=== PATIENT | male | born 1960 | race Caucasian/White ===

== ENCOUNTER 2020-04-28 21:06 | Observation (INO) | payer OTHER ==
--- OUTSIDE RECORDS SUMMARY | 2020-04-28 21:08 | XMS REPORT | Continuity of Care Document ---
:1960 Author Organization [facility] t Address [address] [place] [address] Care Team Providers Name Role Phone Salena Lester Attending Clinician Karan ANGULO, Gretel Amaya Attending Clinician Problems This patient has no known problems. Allergies, Adverse Reactions, Alerts This patient has no known allergies or adverse reactions. Medications This patient has no known medications. Procedures This patient has no known procedures. Encounters Start End Encounter Admission Attending Care Care Encounter Source Date/Time Date/Time Type Type Clinicians Facility Department ID 2020-04-28 2020-04-28 Emergency [place] [facility] [id number] 20:21:00 20:53:00 Salena Sellers [id number] [place] [id number] [place] [id number] 2020-04-24 2020-04-24 Telephone DONNIE Russo [id number] 00:00:00 00:00:00 [facility] [id number] [facility] [id number] 2020-04-12 2020-04-12 Telephone DONNIE Russo [id number] 00:00:00 00:00:00 [facility]al [facility] [id number] [facility] [id number] 2020-04-11 2020-04-11 Office DONNIE Russo [id number] 07:57:35 09:04:50 Visit [facility] [id number] [facility] [id number] Results This patient has no known results.
--- OUTSIDE RECORDS SUMMARY | 2020-04-28 21:09 | XMS REPORT | Summary of Care ---
:1960 Author Organization [facility] Address [address] [place] [id number] Care Team Providers Name Role Phone Gretel Russo MD Primary Care Provider Reason for Visit Reason Comments Constipation Abdominal Pain Encounter Details Date Type Department Care Team Description 04/28/2020 Emergency ADC-Emergency Feldman, Salena , PLANER SETTER Abdominal pain, unspecified abdominal lo cation (Primary Dx); Department [address] [place] [address] Constipation, unspecified constipation t ype [address] [place] [address] [address] [place] [address] Allergies No Known Allergiesdocumented as of this encounter (statuses as of 04/28/2020) Medications Medication Sig Dispensed Refills Start Date End Date Status mlaypmbna-kmysfbut-kism Take 1 tablet by 30 tablet 12 0 Active fov ala (BIKTARVY) mouth daily. 50-200-25 mg tabletIndications: Asymptomatic HIV infection enalapril 20 mg Take 1 tablet by 90 tablet 3 04/11/2020 Active tabletIndications: HIV, mouth daily. symptomatic pravastatin 40 mg Take 1 tablet by 90 tablet 3 04/11/2020 Active tabletIndications: HIV, mouth at bedtime. symptomatic documented as of this encounter (statuses as of 04/28/2020) Active Problems Problem Noted Date Hyperlipidemia 09/30/2011 ASYMPTOMATIC HIV INFECTION STATUS(aka V08) 05/27/2007 documented as of this encounter (statuses as of 04/28/2020) Immunizations Name Administration Dates Next Due HEPATITIS A 09/16/2004, 03/18/2004 Influenza Virus Vaccine 02/08/2020, 03/02/2014, 03/02/2012, 02/25/2011 Influenza Virus Vaccine (3+ yrs) 02/01/2013 Meningococcal Polysaccharide (groups 05/18/2019, 12/22/2018 A, C, Y and W-135) conjugate vaccine (MCV4P) PPD (TB) 09/27/2011, 09/21/2010, 10/22/2001 Pneumococcal 13 Conjugate, PCV13 07/09/2014 (Prevnar 13) Pneumococcal Polysaccharide, PPSV23 05/24/2007, 03/24/2002 (PNEUMOVAX) TDAP (ADACEL) VACCINE 02/25/2011 documented as of this encounter Social History Tobacco Use Types Packs/Day Years Used Date Former Smoker 3 30 Smokeless Tobacco: Never Used Comments: has smoking for 30 plus years up to 3 PPD Alcohol Use Drinks/Week oz/Week Comments No Sex Assigned at Date Recorded Not on file COVID-19 Exposure Response Date Recorded In the last month, have you been in contact with No / Unsure 04/28/2020 8:12 PM PROGRAM DIRECTOR/TRAFFIC DIRECTOR someone who was confirmed or suspected to have Coronavirus / COVID-19? documented as of this encounter Last Filed Vital Signs Vital Sign Reading Time Taken Comments Blood Pressure 107/66 04/28/2020 8:15 PM PROGRAM DIRECTOR/TRAFFIC DIRECTOR Pulse 99 04/28/2020 8:15 PM PROGRAM DIRECTOR/TRAFFIC DIRECTOR Temperature 36.4 C (97.5 F) 04/28/2020 8:15 PM PROGRAM DIRECTOR/TRAFFIC DIRECTOR Respiratory Rate 16 04/28/2020 8:15 PM PROGRAM DIRECTOR/TRAFFIC DIRECTOR Oxygen Saturation 100% 04/28/2020 8:15 PM PROGRAM DIRECTOR/TRAFFIC DIRECTOR Inhaled Oxygen Concentration - - Weight 72.6 kg (160 lb) 04/28/2020 8:15 PM PROGRAM DIRECTOR/TRAFFIC DIRECTOR Height 177.8 cm (5' 10") 04/28/2020 8:15 PM PROGRAM DIRECTOR/TRAFFIC DIRECTOR Body Mass Index 22.96 04/28/2020 8:15 PM PROGRAM DIRECTOR/TRAFFIC DIRECTOR documented in this encounter ED Notes Lor Spangler RN - 04/28/2020 8:13 PM CSTCC: patient presents to the ER with complaints of abdominal pain and constipation. Patient states that constipation symptoms began 5 days ago, last BM was 4-5 days ago. Patient states that he has triedstool softeners, laxatives, enemas, and magnesium citrate without relief. PMHx: see history Tetanus: Not current Awake, alert, oriented, resp reg unlabored, skin warm and dry, color appropriate for race, moves allext without difficulty, amb without assistance. Appears in no distress. documented in this encounter Miscellaneous Notes ED Nurse Note - Nisreen Cheng, RN - 04/28/2020 8:42 PM CSTPatient left AMA due to not having CT Scanner available. Pt stated, "If I do have to have a CT scan I don't want to be transferred. I would rather just leave now and go to [place]." documented in this encounter Plan of Treatment Date Type Specialty Care Team Description 08/15/2020 Office Visit Infectious Disease Gretel Russo MD [address] [place] [address] 555 Name Type Priority Associated Diagnoses Order S chedule CBC with Differential LAB STAT Abdominal pain, STA T for 1 Occurrences unspecified abdominal starti ng 04/28/2020 location until 04/28/2020 Constipation, unspecified constipation type Basic Metabolic Panel LAB STAT Abdominal pain, STA T for 1 Occurrences (NA, K, CL, CO2, unspecified abdominal st arting 04/28/2020 GLUCOSE, BUN, location until 04/28/2020 CREATININE, CA) Constipation, unspecified constipation type Hepatic Function Panel LAB STAT Abdominal pain, ST AT for 1 Occurrences (ALB, T.PRO, BILI T, unspecified abdomina l starting 04/28/2020 BU/BC, ALT, AST, ALK location until 04/28/2020 PHOS) Constipation, unspecified constipation type Lipase Serum LAB STAT Abdominal pain, STAT for 1 O ccurrences unspecified abdominal starti ng 04/28/2020 location until 04/28/2020 Constipation, unspecified constipation type Health Maintenance Due Date Last Done Comments COLON CANCER SCREENING ANNUAL 2012 FIT/FOBT COLON CANCER SCREENING FIT DNA 2012 EVERY 3 YEARS COLON CANCER SCREENING 2012 SIGMOIDOSCOPY EVERY 5 YEARS COLONOSCOPY 2012 Colorectal Cancer Screening 2012 Zoster Recombinant Vaccine 2012 (SHINGRIX) (1 of 2) LUNG CANCER SCREEN: Recommended 2017 for age 55-80 with 30 + pack year history DTaP,Tdap,and Td Vaccines (2 - Td) 02/25/2021 02/25/2011 Depression Screening 04/11/2021 04/11/2020 HEPATITIS C (HCV) SCREEN Completed 10/13/2010 PNEUMOCOCCAL 0-64 YEARS COMBINED Completed 07/09/2014, , SERIES 03/24/2002 INFLUENZA VACCINE Completed 02/08/2020, 03/02/2014, 02/01/2013, Additional history exists documented as of this encounter Procedures Procedure Name Priority Date/Time Associated Diagnosis Comme nts NOTICE OF PRIVACY Routine 04/28/2020 7:58 PM PROGRAM DIRECTOR/TRAFFIC DIRECTOR PRACTICES CONSENT/REFUSAL FOR Routine 04/28/2020 7:57 PM PROGRAM DIRECTOR/TRAFFIC DIRECTOR DIAGNOSIS AND TREATMENT documented in this encounter Results Not on filedocumented in this encounter Visit Diagnoses Diagnosis Abdominal pain, unspecified abdominal lo cation - Primary Constipation, unspecified constipation t ype documented in this encounter Insurance Payer Benefit Plan / Subscriber ID Effective Dates Phone Addre ss Type Group [facility] [id number] 2019-Presen PPO/POS PPO/POS t documented as of this encounter Advance Directives Type Date Recorded 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
--- OUTSIDE RECORDS SUMMARY | 2020-04-28 21:09 | XMS REPORT | Summary of Care ---
:1960 Author Organization [facility] Address [address] [place] [address] Care Team Providers Name Role Phone Pcp, Patient Does Not Have A Primary Care Provider +1-000-00 0-0000 Reason for Visit Reason Comments LAB Encounter Details Date Type Department Care Team Description 04/11/[address] [facility] Clinical Mike Russo MD [address] [place] [address] HIV disease Laboratory - [facility], [facility] [address] [place] [address] Allergies No Known Allergiesdocumented as of this encounter (statuses as of 04/11/2020) Medications Medication Sig Dispensed Refills Start Date End Date Status cwnhdknvl-imgaqcrw-nldt Take 1 tablet by 30 tablet 12 0 Active fov ala (BIKTARVY) mouth daily. 50-200-25 mg tabletIndications: Asymptomatic HIV infection enalapril 20 mg Take 1 tablet by 90 tablet 3 09/18/2019 Active tabletIndications: HIV, mouth daily. symptomatic pravastatin 40 mg Take 1 tablet by 90 tablet 3 09/18/2019 Active tabletIndications: HIV, mouth at bedtime. symptomatic documented as of this encounter (statuses as of 04/11/2020) Active Problems Problem Noted Date Hyperlipidemia 09/30/2011 ASYMPTOMATIC HIV INFECTION STATUS(aka V08) 05/27/2007 documented as of this encounter (statuses as of 04/11/2020) Immunizations Name Administration Dates Next Due HEPATITIS [...] Assigned at Date Recorded Not on file documented as of this encounter Last Filed Vital Signs Not on filedocumented in this encounter Nursing Notes Amber Ayers - 04/11/2020 9:15 AM CST Venipuncture collection performed by clean technique on the right anticubitus. Total of 1 attempts were made. Slight pressure and a bandage/dressing were applied to the site(s). The patient experiencedno complications. The following specimens were processed according to instructions and sent to [facility] laboratories per lab order on : LT BLUE SST 1 RED LAV 2 PPT 1 DK GREEN (LiHep) DK GREEN (SodH) BAEZ DK BLUE (K2) DK BLUE (S) ACD Blood Culture NIPT/NTD documented in this encounter Plan of Treatment Date Type Specialty Care Team Description 08/15/2020 Office Visit Infectious Disease Gretel Russo MD [address] [place] [place] [address] 555 Name Type Priority Associated Diagnoses Date/Ti me CD4 SUBSET ASSAY LAB Routine HIV disease 04/11/2020 9:15 AM CONVENTION WORKER COMP. METABOLIC PANEL LAB Routine HIV disease 2019 9:15 AM CONVENTION WORKER ([id number]) LIPID PANEL (56604)(TOTAL LAB Routine HIV disease 9:15 AM CONVENTION WORKER CHOLESTEROL, TRIGLYCERIDES, HDL) CBC WITH DIFF LAB Routine HIV disease 04/11/2020 9: 15 AM CONVENTION WORKER HIV1 BY REAL-TIME PCR LAB Routine HIV disease 2019 9:15 AM CONVENTION WORKER QUANT Health Maintenance Due Date Last Done Comments COLON CANCER SCREENING 2012 ANNUAL FIT/FOBT COLON CANCER SCREENING FIT 2012 DNA EVERY 3 YEARS COLON CANCER SCREENING 2012 SIGMOIDOSCOPY EVERY 5 YEARS COLONOSCOPY 2012 Colorectal Cancer Screening 2012 Zoster Recombinant Vaccine 2012 (SHINGRIX) (1 of 2) LUNG CANCER SCREEN: 2017 Recommended for age 55-80 with 30 + pack year history INFLUENZA VACCINE (#1) 2020 03/02/2014, 02/01/2013, P ostponed from 03/02/2012, Additional 0 (Refused) history exists DTaP,Tdap,and Td Vaccines 02/25/2021 02/25/2011 (2 - Td) Depression Screening 04/11/2021 04/11/2020 HEPATITIS C (HCV) SCREEN Completed 10/13/2010 PNEUMOCOCCAL 0-64 YEARS Completed 07/09/2014, 05/24/2007, COMBINED SERIES 03/24/2002 documented as of this encounter Results Not on filedocumented in this encounter Visit Diagnoses Diagnosis HIV disease Human immunodeficiency virus [HIV] disea se documented in this encounter Insurance Payer Benefit Plan / Subscriber ID Effective Dates Phone Addre ss Type Group 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
--- OUTSIDE RECORDS SUMMARY | 2020-04-28 21:09 | XMS REPORT | Summary of Care ---
:1960 Author Organization [facility] Address [address] [place], [place] [address] Care Team Providers Name Role Phone Pcp, Patient Does Not Have A Primary Care Provider +1-000-00 0-0000 Reason for Referral Radiology Services (Routine) Status Reason Specialty Diagnoses / Referred By Referred To Procedures Contact Contact New Request Diagnostic Diagnoses Elevated LFTs Russo, Premal Radiology Procedures US ABDOMEN LIMITED MD Monique [address] [place] [phone] (ARIADNA) Status Reason Specialty Diagnoses / Referred By Referred To Procedures Contact Contact New Request Orthopedic Surgery Diagnoses HIV disease Russo, Premal Procedures CONSULT/REFERRAL ORTHOPAEDIC SURGERY MD Monique [address] [place] [address] Reason for Visit Reason Comments Follow-up Encounter Details Date Type Department Care Team Description 04/11/2020 Office Visit [facility] Infectious Russo, Premal G, H IV disease (Primary Dx); DiseasesJaleesa Anthony MD Elevated LFTs; [facility] [address] [place] [address] HIV, symptomatic [address] [place] [address] 6[address] [address] [place], [place] [phone] Allergies No Known Allergiesdocumented as of this encounter (statuses as of 04/11/2020) Medications Medication Sig Dispensed Refills Start Date End Date Status bictegrav-emtricit Take 1 30 tablet 12 05/18/2019 Active -tenofov ala tablet by (BIKTARVY) mouth daily. 50-200-25 mg tabletIndications: Asymptomatic HIV infection enalapril 20 mg Take 1 90 tablet 3 04/11/2020 Act brigitte tabletIndications: tablet by HIV, symptomatic mouth daily. pravastatin 40 mg Take 1 90 tablet 3 04/11/2020 A ctive tabletIndications: tablet by HIV, symptomatic mouth at bedtime. enalapril 20 mg Take 1 90 tablet 3 09/18/2019 Dis continued tabletIndications: tablet by 0 ( Reorder) HIV, symptomatic mouth daily. pravastatin 40 mg Take 1 90 tablet 3 09/18/2019 D iscontinued tabletIndications: tablet by 0 ( Reorder) HIV, symptomatic mouth at bedtime. documented as of this encounter (statuses as [...] Sign Reading Time Taken Comments Blood Pressure 118/77 04/11/2020 8:19 AM APPLICATIONS COORDINATOR Pulse 96 04/11/2020 8:19 AM APPLICATIONS COORDINATOR Temperature 37 C (98.6 F) 04/11/2020 8:19 AM APPLICATIONS COORDINATOR Respiratory Rate 18 04/11/2020 8:19 AM APPLICATIONS COORDINATOR Oxygen Saturation - - Inhaled Oxygen Concentration - - Weight 75.4 kg (166 lb 4.8 oz) 04/11/2020 8:19 AM APPLICATIONS COORDINATOR Height 177.8 cm (5' 10") 04/11/2020 8:19 AM APPLICATIONS COORDINATOR Body Mass Index 23.86 04/11/2020 8:19 AM APPLICATIONS COORDINATOR documented in this encounter Progress Notes Gretel Russo MD - 04/11/2020 8:30 AM CST HIV Clinic Note CC: HIV scheduled visit Patient is a 59 yo M w h/o HIV on ART, last Cd4: 1,199/43% (12/2018) with viral suppression, HTN, HLD, fatty liver, hemorhoids who is here today for follow up of HIV infection and change from atripla to Biktarvy. Pt was seen by Richard in 09/2019. 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 90 tablet 3 pravastatin 40 mg tablet Take 1 tablet by mouth at bedtime. 90 tablet 3 flizgfhis-ddiguxtd-gwrdewi ala (BIKTARVY) 50-200-25 mg tablet Take 1 tablet by mouth daily. 30 tablet 12 No current facility-administered medications for this visit. 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 Personal history of colonic polyps 07/05/14 hyperplastic polyp Tobacco dependence REVIEW OF SYSTEMS REVIEW OF SYSTEMS: Gen: no fever, chills, +30lbs weight loss GI: no nausea, vomiting or diarrhea Cards: no chest pain, SOB MSK: hip and bilateral knee arthralgia (unchanged) PHYSICAL EXAM BP 118/77 | Pulse 96 | Temp 37 C (98.6 F) (Oral) | Resp 18 | Ht 5' 10" (1.778 m) | Wt 166 lb 4.8 oz (75.4 kg) | BMI 23.86 kg/m Wt Readings from Last 2 Encounters: 04/11/20 166 lb 4.8 oz (75.4 kg) 05/18/19 191 lb 1.6 oz (86.7 kg) Gen: AO, NAD HEENT: NCAT, PERRL, EOMI, no thrush Cardio: RRR no m/r/g Lungs: CTA Abd: soft, NTP, protuberant Ext: no edema, clubbing present +varicose veins b/l LABORATORY ABS T4# (/CMM) Date Value 09/27/2013 1,009 CD4 Absolute (Cells/L) Date Value 12/22/2018 1,199 HIV1-PCR (COPIES) Date Value 07/09/2014 Notdete HIV 1 by Real-Time PCR (no units) Date Value 01/06/2018 Not Detected HIV1 by Real-Time PCR Date Value 12/22/2018 <40 Copies/mL 12/22/2018 <1.60 Log Copies/mL NA Date Value 12/22/2018 139 mmol/L 04/02/2014 137 MMOL/L K Date Value 12/22/2018 4.1 mmol/L 04/02/2014 4.5 MMOL/L CALCIUM Date Value 12/22/2018 9.2 mg/dL 04/02/2014 9.7 MG/DL CL Date Value 12/22/2018 105 mmol/L 04/02/2014 104 MMOL/L BUN Date Value 12/22/2018 15 mg/dL 04/02/2014 10 MG/DL CREATININE Date Value 12/22/2018 0.72 mg/dL 04/02/2014 0.69 MG/DL GLUCOSE Date Value 12/22/2018 117 mg/dL (H) 04/02/2014 105 MG/DL CO2 TOTAL Date Value 12/22/2018 27 mmol/L 04/02/2014 24 MMOL/L ALBUMIN Date Value 12/22/2018 3.9 g/dL 04/02/2014 4.2 G/DL T PROTEIN Date Value 12/22/2018 6.9 g/dL 04/02/2014 7.2 G/DL TOTAL BILI Date Value 12/22/2018 0.2 mg/dL 04/02/2014 0.5 MG/DL BILI UNCON (MG/DL) Date Value 06/29/2012 0.2 BILI CONJ (MG/DL) Date Value 06/29/2012 0.0 ALT(SGPT) (U/L) Date Value 12/22/2018 55 (H) 04/02/2014 32 AST(SGOT) (U/L) Date Value 12/22/2018 38 04/02/2014 22 ALK PHOS (U/L) Date Value 12/22/2018 134 (H) 04/02/2014 115 ASSESSMENT/PLAN: 59 yo M w h/o HIV on ART, last Cd4: 1,199/43% (12/2018) with viral suppression, HTN, HLD, fatty liver, hemorhoids who is here today for follow up of HIV infection and change from atripla to Biktarvy. 1. HIV+ - very well controlled with a CD4 > 1000 and an undetectable VL and excellent adherence - was on atripla with viral suppression but changed to Biktarvy because insurance would not cover. HLA [id number] negative - Pt tolerating Biktarvy with no SE - No weight gain; in fact, patient with weight loss - Excellent adherence - Continue Biktarvy - Check CD4, VL, CMP 2. HTN - well controlled today and at home - Cont enalapril 20mg - Monitor BP at home - Check CMP - Start ASA 81mg for Cardiac protection 3. Back/hip pain - Cont Tylenol prn - Pt likely with underlying OA - patient states he had "broken his tailbone" > 1 year ago but still with pain - Refer to Ortho Spine for possible injections 4. hemorhoids - Check CBC - Pt diagnosed with colonoscopy in 2016 - was told at that time no intervention was necessary - bleeding is intermittent - if CBC low OR bleeding worsens with addition of ASA 81, will refer to surgery 5. Hyperlipidemia - well controlled - continue to cut out fatty foods and carbs. - continue pravastatin - lipid panel later in the year - Start ASA 81mg- patient to monitor any bleeding carefully 6. Elevated AP and LFT - unclear etiology - check RUQ US to assess for fatty liver (ordered again) 7. Healthcare maintenance - HBsAb+ - Hep A ab total + - Influenza shot at work for 2019 - Prevnar 07/22 - Pneumovax 03/11 and 05/17 - TdAP 02/17 - PPD negative 05/2019, checked annually at work - s/p Menactra - Last colonoscopy in 2015 in [place], due for repeat 10 yrs later) RTC 4 months ICATIONS COORDINATOR documented in this encounter Plan of Treatment Date Type Specialty Care Team Description 08/15/2020 Office Visit Infectious Disease Gretel Russo MD [address] [place] [address] 555 Name Type Priority Associated Diagnoses Date/Ti me CD4 SUBSET ASSAY LAB Routine HIV disease 04/11/2020 9:15 AM APPLICATIONS COORDINATOR COMP. METABOLIC PANEL LAB Routine HIV disease 2019 9:15 AM APPLICATIONS COORDINATOR (00376) LIPID PANEL (96261)(TOTAL LAB Routine HIV disease 9:15 AM APPLICATIONS COORDINATOR CHOLESTEROL, TRIGLYCERIDES, HDL) CBC WITH DIFF LAB Routine HIV disease 04/11/2020 9: 15 AM APPLICATIONS COORDINATOR HIV1 BY REAL-TIME PCR LAB Routine HIV disease 2019 9:15 AM APPLICATIONS COORDINATOR QUANT Name Type Priority Associated Diagnoses Order S chedule CD4 SUBSET ASSAY LAB Routine HIV disease Expected: 1 06/12/2019, Expires: 2020 COMP. METABOLIC PANEL LAB Routine HIV disease Expect ed: 04/11/2020, ([id number]) Expires: 2020 LIPID PANEL LAB Routine HIV disease Expected: 04/11, ([id number])(TOTAL Expires: 04/11 CHOLESTEROL, TRIGLYCERIDES, HDL) CBC WITH DIFF LAB Routine HIV disease Expected: 07/2019, Expires: 2020 HIV1 BY REAL-TIME PCR LAB Routine HIV disease Expect ed: 04/11/2020, QUANT Expires: 2020 US ABDOMEN LIMITED IMAGING Routine Elevated LFTs Expected : 04/11/2020, Expires: 2020 Health Maintenance Due Date Last Done Comments [...] this encounter Visit Diagnoses Diagnosis HIV disease - Primary Human immunodeficiency virus [HIV] disea se Elevated LFTs Other abnormal blood chemistry HIV, symptomatic Human immunodeficiency virus [HIV] disea se documented in this encounter Insurance Payer Benefit Plan / Subscriber ID Effective Dates Phone Addre ss Type Group [facility] [id number] 2019-Presen PPO/POS PPO/POS t documented as of this encounter Advance Directives Type Date Recorded 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
--- OUTSIDE RECORDS SUMMARY | 2020-04-28 21:09 | XMS REPORT | Summary of Care ---
:1960 Author Organization [address] [address] Care Team Providers Name Role Phone Pcp, Patient Does Not Have A Primary Care Provider +1-000-00 0-0000 Reason for Visit Reason Comments Talk To Nurse Encounter Details Date Type Department Care Team Description 04/12/2020 Telephone [facility] Infectious Zeinab Russo MD Talk To Nurse Diseases[address] [place], [place] [id number] [place] [address] Allergies No Known Allergiesdocumented as of this encounter (statuses as of 04/24/2020) Medications Medication Sig Dispensed Refills Start Date End Date Status bednmsmbe-grntdpfa-wgle Take 1 tablet by 30 tablet 12 0 Active fov ala (BIKTARVY) mouth daily. 50-200-25 mg tabletIndications: Asymptomatic HIV infection enalapril 20 mg Take 1 tablet by 90 tablet 3 04/11/2020 Active tabletIndications: HIV, mouth daily. symptomatic pravastatin 40 mg Take 1 tablet by 90 tablet 3 04/11/2020 Active tabletIndications: HIV, mouth at bedtime. symptomatic documented as of this encounter (statuses as of 04/24/2020) Active Problems Problem Noted Date Hyperlipidemia 09/30/2011 ASYMPTOMATIC HIV INFECTION STATUS(aka V08) 05/27/2007 documented as of this encounter (statuses as of 04/24/2020) Immunizations Name Administration Dates Next Due HEPATITIS [...] Signs Not on filedocumented in this encounter Miscellaneous Notes Telephone Encounter - Cecile Flood RN - 04/24/2020 2:10 PM CST [phone] ([place]) Patient. Concerned about decreasing CD4 count He had covid back in November Advised he is still undetectable . He is taking all his meds daily . Advised I will forward the message to MD for review and recommendation and call them back with the treatment plan. Per Gutierrez verbalized an understanding. Cecile RN Component Latest Ref Rng & Units 04/11/2020 12/22/2018 01/06/2018 9:15 AM 11:51 AM 9:00 AM T4 % 31 - 60 % 36 43 40 ABS T4# 410-1,590 Cells/L 685 1,199 1,207 Component Latest Ref Rng & Units 04/11/2020 12/22/2018 01/06/2018 9:15 AM 11:51 AM 9:00 AM HIV1 by Real-Time PCR Not Detected Copies/mL <40 <40 HIV1 by Real-Time PCR Not Detected Log Copies/mL <1.60 <1.60 HIV 1 by Real-Time PCR Not Detected Not Detected ICAL STRENGTH TESTER Telephone Encounter - Natty العراقي - 04/23/2020 7:52 AM CSTEncounter open since 04/12. Resending to Nurse. elephone Encounter - Nisreen Olivera - 04/20/2020 1:45 PM CSTPer Joy is a 59 year old male Patient sent message via Gengo to Customer Service. I called to check to see if he was doing okay,and he states that he would like to speak with doctor/nurse regarding results. Please call. Thank you. elephone Encounter - Natty العراقي - 04/12/2020 2:05 PM CSTPt requesting to speak to Doctor about his lab's. Pt is concerned. ICAL STRENGTH TESTER documented in this encounter Plan of Treatment Date Type Specialty Care Team Description 08/15/2020 Office Visit Infectious Disease Gretel Russo MD [address] [phone] Health Maintenance Due Date Last Done Comments [...] history exists documented as of this encounter Results Not on filedocumented in this encounter Insurance Payer Benefit Plan / Subscriber ID Effective Dates Phone Addre ss Type Group [facility] [id number] 2019-Presen PPO/POS PPO/POS t documented as of this encounter Advance Directives Type Date Recorded Patient Credit Risk Review Officer Explanati on Advance Directives and Living 05/22/2015 8:53 AM Will Power of Food Service Substitute 05/22/2015 8:53 AM
--- OUTSIDE RECORDS SUMMARY | 2020-04-28 21:09 | XMS REPORT | Summary of Care ---
:1960 Author Organization [facility] Address [address] [place] [address] Care Team Providers Name Role Phone Pcp, Patient Does Not Have A Primary Care Provider +1-000-00 0-0000 Encounter Details Date Type Department Care Team Description 04/11/2020 Orders Only [facility] Doctor Unassigned, No [address] [facility] [place] [address] [address] [phone] Allergies No Known Allergiesdocumented as of this encounter (statuses as of 04/11/2020) Medications Medication Sig Dispensed Refills Start Date End Date Status kbzrfbkdp-tbomymvq-ipnc Take 1 tablet by 30 tablet 12 [...] HEPATITIS A 09/16/2004, 03/18/2004 Influenza Virus Vaccine 03/02/2014, 03/02/2012, 02/25/2011 Influenza Virus Vaccine (3+ yrs) 02/01/2013 Meningococcal Polysaccharide (groups A, 05/18/2019, 12/23/19 19 C, Y and W-135) conjugate vaccine (MCV4P) PPD (TB) 09/27/2011, 09/21/2010, 10/22/2001 Pneumococcal 13 Conjugate, PCV13 (Prevnar 07/09/2014 13) Pneumococcal Polysaccharide, PPSV23 05/24/2007, 03/24/2002 (PNEUMOVAX) [...] Signs Not on filedocumented in this encounter Plan of Treatment Date Type Specialty Care Team Description 04/11/2020 Office Visit Infectious Disease Gretel Russo MD Arrived [address] [address] Health Maintenance Due Date Last Done [...] history INFLUENZA VACCINE (#1) 2020 03/02/2014, 02/01/2013, 03/02/2012, Additional history exists Depression Screening 05/18/2020 05/18/2019 DTaP,Tdap,and Td Vaccines (2 - Td) 02/25/2021 02/25/2011 HEPATITIS C (HCV) SCREEN Completed 10/13/2010 PNEUMOCOCCAL 0-64 YEARS COMBINED Completed 07/09/2014, , SERIES 03/24/2002 documented as of this encounter Procedures Procedure Name Priority Date/Time Associated Diagnosis Comme nts ASSIGNMENT OF BENEFITS Routine 04/11/2020 7:57 AM ADJUNCT PROFESSOR OF LAW documented in this encounter Results Not on filedocumented in this encounter Insurance Payer Benefit Plan / Subscriber ID Effective Dates Phone Addre ss Type Group [facility] [id number] 2019-Presen PPO/POS PPO/POS t documented as of this encounter Advance Directives Type Date Recorded Patient Licensed Veterinary Technician Explanati on Advance Directives and Living 05/22/2015 8:53 AM Will Power of Sole Cutter 05/22/2015 8:53 AM
--- OUTSIDE RECORDS SUMMARY | 2020-04-28 21:09 | XMS REPORT | Summary of Care ---
:1960 Author Organization [facility] Address [address] [place], [place] [id number] Care Team Providers Name Role Phone Pcp, Patient Does Not Have A Primary Care Provider +1-000-00 0-0000 Reason for Referral Radiology Services (Routine) Status Reason Specialty Diagnoses / Referred By Referred To Procedures Contact Contact New Request Diagnostic Diagnoses Elevated LFTs Russo, Premal Radiology Procedures US ABDOMEN LIMITED MD Monique [address] [place] [id number] (ARIADNA) Status Reason Specialty Diagnoses / Referred By Referred To Procedures Contact Contact New Request Orthopedic Surgery Diagnoses HIV disease Russo, Premal Procedures CONSULT/REFERRAL ORTHOPAEDIC SURGERY MD Monique [address] [place] [phone] Reason for Visit Reason Comments Follow-up Encounter Details Date Type Department Care Team Description 04/11/2020 Office Visit [facility] Infectious Russo, Premal G, H IV disease (Primary Dx); DiseasesJaleesa Anthony MD Elevated LFTs; [facility] [address] [place] [address] HIV, symptomatic [address] [place] [address] 6th [address] [address] [place], [place] [phone] Allergies No Known Allergiesdocumented as of this [...] Comments Blood Pressure 118/77 04/11/2020 8:19 AM MARKETING CLERK Pulse 96 04/11/2020 8:19 AM MARKETING CLERK Temperature 37 C (98.6 F) 04/11/2020 8:19 AM MARKETING CLERK Respiratory Rate 18 04/11/2020 8:19 AM MARKETING CLERK Oxygen Saturation - - Inhaled Oxygen Concentration - - Weight 75.4 kg (166 lb 4.8 oz) 04/11/2020 8:19 AM MARKETING CLERK Height 177.8 cm (5' 10") 04/11/2020 8:19 AM MARKETING CLERK Body Mass Index 23.86 04/11/2020 8:19 AM MARKETING CLERK documented in this encounter Progress Notes Gretel [...] work, [facility] - [facility] now - tolerating Biktarvy with no SE - has been having allergies and sinus pressure - is taking benadryl and Dayquil - is amenable to taking claritin - 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 90 tablet 3 pdxiljecc-byzybpvl-qroppgf ala (BIKTARVY) 50-200-25 mg tablet Take 1 [...] repeat 10 yrs later) RTC 4 months ETING CLERK documented in this encounter Plan of Treatment Date Type Specialty Care Team Description 08/15/2020 Office Visit Infectious Disease Gretel Russo MD [address] [phone] Name Type Priority Associated Diagnoses Date/Ti me CD4 SUBSET ASSAY LAB Routine HIV disease 04/11/2020 9:15 AM MARKETING CLERK COMP. METABOLIC PANEL LAB Routine HIV disease 2019 9:15 AM MARKETING CLERK ([id number]) LIPID PANEL (85224)(TOTAL LAB Routine HIV disease 9:15 AM MARKETING CLERK CHOLESTEROL, TRIGLYCERIDES, HDL) CBC WITH DIFF LAB Routine HIV disease 04/11/2020 9: 15 AM MARKETING CLERK HIV1 BY REAL-TIME PCR LAB Routine HIV disease 2019 9:15 AM MARKETING CLERK QUANT Name Type Priority Associated Diagnoses Order S chedule CD4 SUBSET ASSAY LAB Routine HIV disease Expected: 1 06/12/2019, Expires: 2020 COMP. METABOLIC PANEL LAB Routine HIV disease Expect ed: 04/11/2020, (74196) Expires: 2020 LIPID PANEL LAB Routine HIV disease Expected: 04/11, (75258)(TOTAL Expires: 04/11 CHOLESTEROL, TRIGLYCERIDES, HDL) CBC WITH [...] Effective Dates Phone Addre ss Type Group [facility] [id number] 2019-Presen PPO/POS PPO/POS t documented as of this encounter Advance Directives Type Date Recorded Patient Food Service Representative Explanati on Advance Directives and Living 05/22/2015 8:53 AM Will Power of Ccnp 05/22/2015 8:53 AM
--- OUTSIDE RECORDS SUMMARY | 2020-04-28 21:09 | XMS REPORT | Summary of Care ---
:1960 Author Organization [address] [address] Care Team Providers Name Role Phone Pcp, Patient Does Not Have A Primary Care Provider +1-000-00 0-0000 Reason for Visit Reason Comments Assessment Encounter Details Date Type Department Care Team Description 04/24/2020 Telephone [facility] Infectious Zeinab Russo MD Assessment Diseases- [address] [place], [place] [phone] [place] [address] Allergies No Known Allergiesdocumented as of this encounter (statuses as of 04/24/2020) Medications Medication Sig Dispensed Refills Start Date End Date Status wkozuzdnx-lwrlkhbu-jtqi Take 1 tablet by 30 tablet 12 [...] Encounter - Cecile Flood RN - 04/24/2020 3:26 PM CHEMICAL OPERATOR [phone] (home) Per Benita was informed of Dr. Russo's recommendations and verbalized an understanding. Cecile RN ICAL OPERATOR Telephone Encounter - Cecile Flood RN - 04/24/2020 3:26 PM CST Gretel Russo MD You; Infectious Disease Nurse 8 minutes ago (3:17 PM) Please let patient know that the CD4 is a function of the general immune system which is related to many factors and not just HIV. The HIV medications impact the CD4 indirectly by making sure the VL issuppressed. As long as the VL is suppressed, we know that the HIV meds are working and are not contributing to the fluctuations in his CD4. The CD4 can fluctuate because of age, other infections (COVID), etc. There is a normal fluctuation of CD4 of 30% that is normal variation day to day. ICAL OPERATOR documented in this encounter Plan of Treatment Date Type Specialty Care Team Description 08/15/2020 Office Visit Infectious Disease Gretel Russo MD [address] [place], [place] [address] [phone] Health Maintenance Due Date Last Done Comments [...] Dates Phone Addre ss Type Group [facility] [id number] 2019-Presen PPO/POS PPO/POS t documented as of this encounter Advance Directives Type Date Recorded Patient Meter Repairer Helper Explanati on Advance Directives and Living 05/22/2015 8:53 AM Will Power of Historical Interpreter 05/22/2015 8:53 AM
[2020-04-28] MEDS ORDERED: ONDANSETRON 4 MG/2 ML VIAL ONE (22:20)
[2020-04-28] MEDS ORDERED: FAMOTIDINE 20 MG/2 ML VIAL IV ONE (22:20)
[2020-04-28] MEDS ORDERED: NA CHLORIDE 0.9% 1,000 ML ONE ×2 (22:20→23:31)
[2020-04-28] MEDS ORDERED: MORPHINE 4 MG/ML SYR ONE (22:20)
[2020-04-28 22:34] LABS: Absolute Lymphocytes (CBC) 0.5 K/uL (0.7-4.9); Basophils % 0.3 % (0-1.3); Hematocrit 52.1 % (39.6-49.0); Lymphocytes % 4.3 % (15.3-44.8); MPV 9.5 fL (7.6-11.3); RBC Red Blood Cell Count 6.19 M/uL (4.33-5.43)
[2020-04-28 23:00] LABS: ALT/SGPT 27 U/L (12-78); AST/SGOT 10 U/L (15-37); Albumin 4.3 g/dL (3.4-5.0); Alkaline Phosphatase 122 U/L (45-117); BUN Blood Urea Nitrogen 23 mg/dL (7-18); Bilirubin Direct 0.2 mg/dL (0-0.2); Bilirubin Total 0.6 mg/dL (0.2-1.0); Lipase 85 U/L (73-393); Protein, Total 8.8 g/dL (6.4-8.2); Sodium Level 125 mmol/L (136-145)
[2020-04-28 23:02] LABS: Bicarbonate 9 mmol/L (21-32); Glucose Level 559 mg/dL (74-106); Potassium 5.7 mmol/L (3.5-5.1)
[2020-04-28 23:22] LABS: Arterial Blood Carboxyhemoglob 1.2 % (0-1.5); Blood Gas Oxyhemoglobin 95.6 % (94-97); Blood O2 Saturation 97.8 % (92-98.5)
[2020-04-28 23:28] LABS: Anisocytosis SLIGHT; Blood Morphology Comment NOTED (NOT SEEN); Platelet Estimate ADEQ
[2020-04-28] MEDS ORDERED: NA CHLORIDE 0.9% 100 ML ONE (23:29)
[2020-04-28] MEDS ORDERED: INSULIN -REGULAR HUMAN 50 UNIT/0.5 ML ML ONE (23:29)
[2020-04-28 23:51] LABS: Troponin (Emerg Dept Use Only) < 0.02 ng/mL (0.0-0.045)
--- NOTE | 2020-04-29 00:41 | ER ---
Nurse's Notes [facility] Name: Per Gutierrez Jr Age: 59 yrs Sex: Male : 1960 Arrival Date: 04/28/2020 Time: 21:07 Bed 7 Private MD: Diagnosis: Diabetic Keto Acidosis;Constipation Presentation: 04/28 21:16 Chief complaint: Patient states: Abd pain and distension for 5 days. No BM for 5 days, ll1 tried many OTC meds that didn't help. + Nausea. No fever. Coronavirus screen: Client denies travel out of the [place] in the last 14 days. nausea, At this time, the client does not indicate any symptoms associated with coronavirus-19. The client reports previous COVID testing was negative. Ebola Screen: Patient denies travel to an Ebola-affected area in the 21 days before illness onset. Initial Sepsis Screen: Does the patient meet any 2 criteria? RR > 20 per min. HR > 90 bpm. Yes Does the patient have a suspected source of infection? Yes: Acute abdominal pain. Risk Assessment: Do you want to hurt yourself or someone else? Patient reports no desire to harm self or others. Onset of symptoms was April 24, 2020. 21:16 Method Of Arrival: Ambulatory ll1 21:16 Acuity: ARYA 2 ll1 21:41 Initial Sepsis Screen: Does the patient meet any 2 criteria? RR > 20 per min. Yes. ll1 Historical: - Allergies: 21:16 No Known Allergies; ll1 - Home Meds: 23:50 enalapril maleate 20 mg Oral tab 1 tab once daily [Active]; pravastatin 40 mg oral tab dm5 1 tab once daily [Active]; aspirin 81 mg Oral chew 1 tab once daily [Active]; 23:52 biktarvy tab 1 tab daily for AIDS/HIV [Active]; Vitamin C 500 mg Oral tab [Active]; dm5 black elderberry 1000 mg 1 tab daily [Active]; - PMHx: 21:16 Hypertension; High Cholesterol; HIV; ll1 - PSHx: 21:16 colonscopy; ll1 - Immunization history:: Flu vaccine is up to date. - Social history:: Smoking status: Reported history of juuling and/or vaping. - Code Status:: DNAR. Screenin:29 Abuse screen: Denies threats or abuse. Denies injuries from another. Nutritional mg2 screening: No deficits noted. Tuberculosis screening: No symptoms or risk factors identified. Fall Risk IV access (20 points). Assessment: 23:29 General: Appears in no apparent distress. Behavior is calm, cooperative. Neuro: Level mg2 of Consciousness is awake, alert, obeys commands, Oriented to person, place, time, situation. Cardiovascular: Capillary refill < 3 seconds Patient's skin is warm and dry. Respiratory: Airway is patent Respiratory effort is even, unlabored, Respiratory pattern is regular, symmetrical. GI: Bowel sounds present X 4 quads. GI: Reports nausea, vomiting. :. EENT: No signs and/or symptoms were reported regarding the EENT system. Derm:. Musculoskeletal: Circulation, motion, and sensation intact. Capillary refill < 3 seconds. 23:53 Reassessment: Home medications left with us in clear plastic bag, with patient label on dm5 bag and on bottles not already labeled with patient name. Spouse is authorized to get information on patient, verbal agreement from patient. Spouse given access code. Spouse name is Balaji Rodriguez [phone] Cell #1, Cell # 2. 04/29 00:17 Reassessment: Patient appears in no apparent distress at this time. Patient and/or mg2 family updated on plan of care and expected duration. Pain level reassessed. Patient is alert, oriented x 3, equal unlabored respirations, skin warm/dry/pink. 01:21 Reassessment: seen by Hospitalist- dr Jaramillo. mg2 01:40 Reassessment: [facility]- hospice nurse- [phone]. mg2 Vital Signs: 04/28 21:16 BP 101 / 76; Pulse 100; Resp 22; Temp 97.2; Pulse Ox 100% ; Weight 72.57 kg; Height 5 ll1 ft. 10 in. (177.80 cm); Pain 8/10; 23:35 Weight 68.69 kg (M); dm5 04/29 00:16 BP 97 / 55; Pulse 98; Resp 19; Pulse Ox 100% on R/A; mg2 01:20 BP 93 / 56; Pulse 92; Resp 19; Pulse Ox 99% on R/A; mg2 04/28 23:35 Body Mass Index 21.73 (68.69 kg, 177.80 cm) dm5 ED Course: 04/28 21:07 Patient arrived in ED. am2 21:11 had to use the restroom before triage. Gait steady. ll1 21:12 Arm band placed on. ll1 21:18 Triage completed. ll1 21:25 Krystian Rubin MD is Attending Physician. mh7 21:45 Damion Oliva, RN is Primary Nurse. mg2 22:15 Inserted saline lock: 18 gauge in right antecubital area, using aseptic technique. oe Blood collected. 22:27 Chest Single View XRAY In Process Unspecified. EDMS 23:03 Notified ED physician of a critical lab result(s). K 5.7. bicarb 9, glucose 559. dm5 23:29 No provider procedures requiring assistance completed. Patient admitted, IV remains in mg2 place. 23:30 Patient has correct armband on for positive identification. mg2 23:31 CT Abd/Pelvis - IV Contrast Only In Process Unspecified. EDMS 04/29 00:16 Inserted saline lock: 20 gauge in left antecubital area, using aseptic technique. mg2 00:39 Luis F Jaramillo MD is Hospitalizing Provider. mh7 01:26 COVID swab sent to lab. mg2 07:23 Primary Nurse role handed off by Damion Oliva RN eb Administered Medications: 04/28 22:24 Drug: NS 0.9% 1000 ml Route: IV; Rate: 1000 ml; Site: right antecubital; jb4 22:24 Drug: Pepcid 20 mg Route: IVP; Site: right antecubital; jb4 04/29 00:17 Follow up: Response: No adverse reaction mg2 04/28 22:25 Drug: Zofran (Ondansetron) 4 mg Route: IVP; Site: right antecubital; jb4 04/29 00:17 Follow up: Response: No adverse reaction [facility] 04/28 22:27 Drug: morphine 4 mg Route: IVP; Site: right antecubital; jb4 04/29 00:18 Follow up: Response: No adverse reaction mg2 04/28 23:20 Drug: NS 0.9% 1000 ml Route: IV; Rate: 1000 ml; Site: right antecubital; dm5 23:25 Drug: Insulin Regular Human 10 units {Co-Signature: mg2 (Damion Oliva RN).} Route: dm5 IVP; Site: right antecubital; 23:35 Drug: Insulin Drip - (Insulin Regular Human 100 units, NS 0.9% 100 ml) {Co-Signature: dm5 mg2 (Damion Oliva RN).} Route: IV; Rate: calculated rate; Site: right antecubital; 04/29 00:59 Follow up: Rate change 3.5 calculated rate mg2 01:08 Drug: NS 0.9% 1000 ml Route: IV; Rate: 1000 ml; Site: right antecubital; mg2 Outcome: 00:40 Decision to Hospitalize by Provider. mh7 01:46 Admitted to ER Hold. Please see [facility] for further documentation. mg2 17:49 Patient left the ED. vg1 Signatures: Dispatcher [employer] EDMS Leslie Garrison, RN RN dm5 Yemi Burdick RN RN jb4 Humble Abreu Amanda am2 Anai Blanco Michele, RN RN mg2 Brea Olivera RN RN vg1 Jona Howard RN RN 1 Krystian Rubin MD MD 7 Damion Oliva RN mg2 Corrections: (The following items were deleted from the chart) 04/28 21:40 21:16 Coronavirus screen: Client denies travel out of the [place] in the last 14 days. At 1 this time, the client does not indicate any symptoms associated with coronavirus-19. 1 21:41 21:16 Initial Sepsis Screen: Does the patient meet any 2 criteria? HR > 90 bpm. No. ll1 Patient's initial sepsis screen is negative. Does the patient have a suspected source of infection? Yes: Acute abdominal pain ll1
--- NOTE | 2020-04-29 00:41 | EDPHYS ---
Physician Documentation [facility] Name: Per Gutierrez Jr Age: 59 yrs Sex: Male : 1960 Arrival Date: 04/28/2020 Time: 21:07 Bed 7 Private MD: ED Physician Krystian Rubin HPI: 04/28 21:45 This 59 yrs old Male presents to ER via Ambulatory with complaints of mh7 Constipation, Nausea/Vomiting, Abdominal Pain. 21:45 The patient presents with abdominal pain in the upper abdomen. Onset: The mh7 symptoms/episode began/occurred 5 day(s) ago. The symptoms do not radiate. Associated signs and symptoms: Pertinent positives: nausea and vomiting, constipation, Pertinent negatives: anorexia, blood in stools, chest pain, diarrhea, dysuria, fever, headache, hematuria, palpitations, shortness of breath, testicular pain, vomiting blood. The symptoms are described as intermittent, vague, waxing/waning. Modifying factors: The symptoms are alleviated by nothing, the symptoms are aggravated by food. Severity of pain: At its worst the pain was moderate 4 day(s) ago, in the emergency department the pain is unchanged. Historical: - Allergies: 21:16 No Known Allergies; ll1 - Home Meds: 23:50 enalapril maleate 20 mg Oral tab 1 tab once daily [Active]; pravastatin 40 mg oral tab dm5 1 tab once daily [Active]; aspirin 81 mg Oral chew 1 tab once daily [Active]; 23:52 biktarvy tab 1 tab daily for AIDS/HIV [Active]; Vitamin C 500 mg Oral tab [Active]; dm5 black elderberry 1000 mg 1 tab daily [Active]; - PMHx: 21:16 Hypertension; High Cholesterol; HIV; ll1 - PSHx: 21:16 colonscopy; ll1 - Immunization history:: Flu vaccine is up to date. - Social history:: Smoking status: Reported history of juuling and/or vaping. - Code Status:: DNAR. ROS: 21:45 Constitutional: Negative for fever, chills, and weight loss, Eyes: Negative for injury, mh7 pain, redness, and discharge, ENT: Negative for injury, pain, and discharge, Neck: Negative for injury, pain, and swelling, Cardiovascular: Negative for chest pain, palpitations, and edema, Respiratory: Negative for shortness of breath, cough, wheezing, and pleuritic chest pain, Back: Negative for injury and pain, : Negative for injury, bleeding, discharge, and swelling, MS/Extremity: Negative for injury and deformity, Skin: Negative for injury, rash, and discoloration, Neuro: Negative for headache, weakness, numbness, tingling, and seizure, Psych: Negative for depression, anxiety, suicide ideation, homicidal ideation, and hallucinations, Allergy/Immunology: Negative for hives, rash, and allergies, Endocrine: Negative for neck swelling, polydipsia, polyuria, polyphagia, and marked weight changes, Hematologic/Lymphatic: Negative for swollen nodes, abnormal bleeding, and unusual bruising. Exam: 21:45 Head/Face: Normocephalic, atraumatic. Eyes: Pupils equal round and reactive to light, mh7 extra-ocular motions intact. Lids and lashes normal. Conjunctiva and sclera are non-icteric and not injected. Cornea within normal limits. Periorbital areas with no swelling, redness, or edema. Neck: Trachea midline, no thyromegaly or masses palpated, and no cervical lymphadenopathy. Supple, full range of motion without nuchal rigidity, or vertebral point tenderness. No Meningismus. Chest/axilla: Normal chest wall appearance and motion. Nontender with no deformity. No lesions are appreciated. Cardiovascular: Regular rate and rhythm with a normal S1 and S2. No gallops, murmurs, or rubs. Normal PMI, no JVD. No pulse deficits. Respiratory: Lungs have equal breath sounds bilaterally, clear to auscultation and percussion. No rales, rhonchi or wheezes noted. No increased work of breathing, no retractions or nasal flaring. 21:45 Back: No spinal tenderness. No costovertebral tenderness. Full range of motion. Skin: Warm, dry with normal turgor. Normal color with no rashes, no lesions, and no evidence of cellulitis. MS/ Extremity: Pulses equal, no cyanosis. Neurovascular intact. Full, normal range of motion. Neuro: Awake and alert, GCS 15, oriented to person, place, time, and situation. Cranial nerves II-XII grossly intact. Motor strength 5/5 in all extremities. Sensory grossly intact. Cerebellar exam normal. Normal gait. Psych: Awake, alert, with orientation to person, place and time. Behavior, mood, and affect are within normal limits. 21:45 Constitutional: The patient appears in no acute distress, alert, awake, uncomfortable. 21:45 Abdomen/GI: Inspection: abdomen appears normal, Bowel sounds: normal, in all quadrants, Palpation: moderate abdominal tenderness, in the epigastric area, right upper quadrant and left upper quadrant, Rectal exam: rectal tone normal, Stool: brown, guaiac negative, hemorrhoid(s), external, without bleeding, without inflammation, without thrombosis, without pain, mass, is not appreciated, swelling, is not appreciated, tenderness, is not appreciated, fecal impaction, is not appreciated, Indicators: McBurney's point is not tender, Guillen's sign is negative, Rovsing's sign is negative, Obturator sign is negative, Psoas sign is negative, Liver: no appreciated palpable abnormalities, Hernia: not appreciated. Vital Signs: 21:16 BP 101 / 76; Pulse 100; Resp 22; Temp 97.2; Pulse Ox 100% ; Weight 72.57 kg; Height 5 ll1 ft. 10 in. (177.80 cm); Pain 8/10; 23:35 Weight 68.69 kg (M); dm5 04/29 00:16 BP 97 / 55; Pulse 98; Resp 19; Pulse Ox 100% on R/A; mg2 01:20 BP 93 / 56; Pulse 92; Resp 19; Pulse Ox 99% on R/A; mg2 04/28 23:35 Body Mass Index 21.73 (68.69 kg, 177.80 cm) dm5 MDM: 00:37 Differential diagnosis: appendicitis, bowel obstruction, coronary artery disease, mh7 cholecystitis, Cholelithiasis, diverticulitis, gastritis, gastroesophageal reflux disease, non-specific abd pain, pancreatitis, Peptic Ulcer Disease, Pyelonephritis, Ureterolithiasis, urinary tract infection. Data reviewed: vital signs, nurses notes, lab test result(s), cardiac enzymes, CBC, electrolytes, urinalysis, EKG, radiologic studies, CT scan, plain films. Data interpreted: Pulse oximetry: on room air is 100 %. Interpretation: normal. Counseling: I had a detailed discussion with the patient and/or guardian regarding: the historical points, exam findings, and any diagnostic results supporting the discharge/admit diagnosis, lab results, radiology results, the need for further work-up and treatment in the hospital. Response to treatment: the patient's symptoms have mildly improved after treatment. 00:40 Patient medically screened. [facility] 04/28 21:45 Order name: Basic Metabolic Panel; Complete Time: 23:56 [facility] 04/28 21:45 Order name: CBC with Diff; Complete Time: 23:30 [facility] 04/28 21:45 Order name: Hepatic Function; Complete Time: 23:56 [facility] 04/28 21:45 Order name: Lipase; Complete Time: 23:56 [facility] 04/28 22:35 Order name: Manual Differential; Complete Time: 23:30 [facility] 04/28 23:05 Order name: Ketone, Serum; Complete Time: 23:56 [facility] 04/28 23:05 Order name: Arterial Blood Gas [facility] 04/28 23:06 Order name: ABG Arterial Blood Gas; Complete Time: 23:30 [facility] 04/28 23:19 Order name: Troponin (Emerg Dept Use Only); Complete Time: 23:56 [facility] 04/29 00:16 Order name: Urine Dipstick--Ancillary (enter results); Complete Time: 02:52 [facility] 04/29 00:28 Order name: COVID-19 mg2 04/29 00:28 Order name: CORONAVIRUS [facility] 04/29 00:48 Order name: Glucose, Ancillary Testing; Complete Time: 02:52 [facility] 04/29 01:08 Order name: BMP: \T\ 0200 mg2 04/29 01:46 Order name: Basic Metabolic Panel [facility] 04/29 01:46 Order name: Basic Metabolic Panel [facility] 04/29 01:46 Order name: Phosphorus [facility] 04/29 01:46 Order name: Hemoglobin A1c [facility] 04/29 01:46 Order name: CBC with Automated Diff [facility] 04/29 01:46 Order name: CBC with Automated Diff [facility] 04/29 01:46 Order name: Comprehensive Metabolic Panel [facility] 04/29 01:47 Order name: Comprehensive Metabolic Panel [facility] 04/29 01:47 Order name: Lipid Profile [facility] 04/29 01:47 Order name: Lipid Profile [facility] 04/29 01:47 Order name: CREATININE WHOLE BLOOD; Complete Time: 02:52 [facility] 04/29 01:50 Order name: Glucose, Ancillary Testing; Complete Time: 02:52 [facility] 04/29 02:41 Order name: SARS-COV-2 RT PCR; Complete Time: 02:52 [facility] 04/29 02:57 Order name: Glucose, Ancillary Testing [facility] 04/29 03:10 Order name: Phosphorus [facility] 04/28 21:45 Order name: IV Saline Lock; Complete Time: 22:29 [facility] 04/28 21:45 Order name: Labs collected and sent; Complete Time: 22:29 [facility] 04/28 21:45 Order name: Urine Dipstick-Ancillary (obtain specimen); Complete Time: 00:18 [facility] 04/28 21:45 Order name: EKG - Nurse/Tech; Complete Time: 22:03 [facility] 04/28 21:45 Order name: CT Abd/Pelvis - IV Contrast Only [facility] 04/28 21:51 Order name: Chest Single View XRAY [facility] 04/29 01:46 Order name: CONS Pharmacy Consult [facility] 04/29 01:46 Order name: CONS Physician Consult [facility] 04/29 01:46 Order name: Clear Liquid [facility] 04/29 04:17 Order name: Glucose, Ancillary Testing [facility] 04/29 05:25 Order name: Glucose, Ancillary Testing [facility] 04/29 06:19 Order name: Glucose, Ancillary Testing [facility] 04/29 07:04 Order name: Glucose, Ancillary Testing [facility] 04/29 08:10 Order name: Glucose, Ancillary Testing [facility] 04/29 09:09 Order name: Glucose, Ancillary Testing [facility] 04/29 10:02 Order name: Basic Metabolic Panel [facility] 04/29 10:08 Order name: Glucose, Ancillary Testing [facility] 04/29 11:05 Order name: Glucose, Ancillary Testing [facility] 04/29 13:42 Order name: Glucose, Ancillary Testing [facility] 04/29 15:40 Order name: Glucose, Ancillary Testing [facility] Administered Medications: 04/28 22:24 Drug: NS 0.9% 1000 ml Route: IV; Rate: 1000 ml; Site: right antecubital; jb4 22:24 Drug: Pepcid 20 mg Route: IVP; Site: right antecubital; jb4 04/29 00:17 Follow up: Response: No adverse reaction [facility] 04/28 22:25 Drug: Zofran (Ondansetron) 4 mg Route: IVP; Site: right antecubital; jb4 04/29 00:17 Follow up: Response: No adverse reaction mg2 04/28 22:27 Drug: morphine 4 mg Route: IVP; Site: right antecubital; jb4 04/29 00:18 Follow up: Response: No adverse reaction mg2 04/28 23:20 Drug: NS 0.9% 1000 ml Route: IV; Rate: 1000 ml; Site: right antecubital; dm5 23:25 Drug: Insulin Regular Human 10 units {Co-Signature: mg2 (Damion Oliva RN).} Route: dm5 IVP; Site: right antecubital; 23:35 Drug: Insulin Drip - (Insulin Regular Human 100 units, NS 0.9% 100 ml) {Co-Signature: dm5 mg2 (Damion Oliva RN).} Route: IV; Rate: calculated rate; Site: right antecubital; 04/29 00:59 Follow up: Rate change 3.5 calculated rate mg2 01:08 Drug: NS 0.9% 1000 ml Route: IV; Rate: 1000 ml; Site: right antecubital; mg2 Disposition: 04/29/20 00:40 Hospitalization ordered by Luis F Jaramillo for Inpatient Admission. Preliminary diagnosis are Diabetic Keto Acidosis, Constipation. - Bed requested for Telemetry/MedSurg (Inpatient). - Status is Inpatient Admission. vg1 - Condition is Serious. - Problem is new. - Symptoms have improved. Signatures: Dispatcher [employer] [facility] Leslie Garrison RN RN dm5 Ele Farmer RN RN dw Bryson, James, RN RN jb4 Damion Oliva RN RN mg2 Brea Olivera RN RN vg1 Jona Howard RN RN 1 Krystian Rubin MD MD 7 Damion Oliva RN mg2 Corrections: (The following items were deleted from the chart) 04/28 23:19 23:06 TROPONIN (EMERG DEPT USE ONLY)+C.LAB.BRZ ordered. [facility] 04/29 01:27 00:40 Hospitalization Ordered by Luis F Jaramillo MD for Inpatient Admission. Preliminary dm5 diagnosis is Diabetic Keto Acidosis; Constipation. Bed requested for Intensive Care Unit. Status is Inpatient Admission. Condition is Serious. Problem is new. Symptoms have improved. [facility] 15:56 01:27 04/29/2020 00:40 Hospitalization Ordered by Luis F Jaramillo MD for Inpatient dw Admission. Preliminary diagnosis is Diabetic Keto Acidosis; Constipation. Bed requested for [facility] ER HOLD. Status is Inpatient Admission. Condition is Serious. Problem is new. Symptoms have improved. dm5 17:49 15:56 04/29/2020 00:40 Hospitalization Ordered by Luis F Jaramillo MD for Inpatient vg1 Admission. Preliminary diagnosis is Diabetic Keto Acidosis; Constipation. Bed requested for Telemetry/MedSurg (Inpatient). Status is Inpatient Admission. Condition is Serious. Problem is new. Symptoms have improved. dw
[2020-04-29 00:49] LABS: Urine Blood TRACE (NEG); Urine Glucose 2+ (NEG); Urine Protein NEGATIVE (NEG); Urine Specific Gravity 1.015 (1.005-1.030)
--- NOTE | 2020-04-29 01:03 | P.HP ---
Certification for Inpatient With expected LOS: >2 Midnights Patient will require the following post-hospital care: None Practitioner: I am a practitioner with admitting privileges, knowledge of patient current condition, hospital course, and medical plan of care. Services: Services provided to patient in accordance with Admission requirements found in Title 42 Section 412.3 of the Code of Federal Regulations Patient History Date of Service: 04/29/20 Reason for admission: nausea and vomiting , abdominal pain History of Present Illness: 59-year-old male with past medical history of HTN, HLD, HIV on anti- retroviral medications, status post recent echo free infection with spontaneous recovery 4 months ago, developed progressively worsening recurrent polyuria, jemima ydipsia, increasing weakness with loss since the last 4 months pulse coughing. Patient continued to have progressive symptoms on FAMILIA new association with nausea vomiting and abdominal cramps since the last 1 week. He took a bunch of laxative with no significant improvement in his abdominal cramps. He presented to the ED today. He admits to family history of diabetes mellitus in his father in his 60s. On presentation he was noted with borderline low blood pressure, ABG shows acidosis with pH of 7.18. He was noted with hyperglycemia with glucose of 567 as well as anion gap metabolic acidosis. He has been diagnosed with DKA. Patient feels better now with gentle IV fluid although asystole blood pressure a stay in the 70s. History supplemented by his life partner CT now at bedside. Patient is an [employer] in the area and states his familiar with his diagnosis Home medications list reviewed: Yes - Past Medical/Surgical History Has patient received pneumonia vaccine in the past: No Diabetic: No -: HTN,HIV,HLD Past Surgical History: Patient denies surgical history - Family History Father -: Diabetes - Social History Smoking Status: Former smoker Counseled patient to stop smoking for: less than 10 minutes Smoking therapy provided: No Patient receptive to therapy: Yes Alcohol use: No CD- Drugs: No Caffeine use: No Place of Residence: Home Review of Systems General: Weakness, Malaise Eyes: Unremarkable ENT: Unremarkable Respiratory: Unremarkable Cardiovascular: Light Headedness Gastrointestinal: Nausea, Vomiting, Abdominal Pain Genitourinary: Frequency Musculoskeletal: Unremarkable Neurological: Numbness Physical Examination - Physical Exam General: Alert, In no apparent distress, Oriented x3, Other (THIN BUILT ) HEENT: Atraumatic, Normocephalic, PERRLA Neck: Supple, 2+ carotid pulse no bruit, JVD not distended Respiratory: Clear to auscultation bilaterally, Normal air movement Cardiovascular: No edema, Normal pulses, Regular rate/rhythm, Normal S1 S2 Capillary refill: <2 Seconds Gastrointestinal: Normal bowel sounds, Soft and benign, Non-distended, No masses, No rebound Musculoskeletal: No clubbing, No swelling Integumentary: No rashes, No breakdown, No significant lesion Neurological: Normal gait, Normal speech, Normal strength at 5/5 x4 extr, Normal tone, Sensation intact, Cranial nerves 3-12 intact - Studies Laboratory Data (last 24 hrs) 04/28/20 22:12: WBC 11.4 H, Hgb 16.5, Hct 52.1 H, Plt Count 309 04/28/20 22:12: Sodium 125 L, Potassium 5.7 H*, BUN 23 H, Creatinine 1.30, Glucose 559 H*, Total Bilirubin 0.6, AST 10 L, ALT 27, Alkaline Phosphatase 122 H, Lipase 85 Assessment and Plan - Problems (Diagnosis) (1) DKA (diabetic ketoacidoses) Current Visit: Yes Status: Acute (2) Secondary DM with DKA Current Visit: Yes Status: Acute (3) HIV (human immunodeficiency virus infection) Current Visit: Yes Status: Acute (4) HTN (hypertension) Current Visit: Yes Status: Acute Discharge Plan: Home - Advance Directives Does patient have a Living Will: No Does patient have a Durable POA for Healthcare: No - Code Status/Comfort Care Code Status: Full Code Physician Review: Patient Assessed, Agree with Above Assessment and Plan Physician Review Additional Text: # DKA-likely due to adult onset type 1 We admit patient to the ICU will do aggressive IV hydration with normal saline. -will obtain phosphorus level and replete -we start insulin drip Monitor glucose q.1 hr Repeat BMP for anion gap q.4 hr Obtain hemoglobin A1c. Need for diabetics education and counseling done today Can do clear liquids since expected rapid glucose control # Hypotension -may be due to dehydration Bolus normal saline 1 L now Continue aggressive IVF # HIV-on therapy, continue biktarvy # HLD- on statin # former tobacco use-patient currently Vapes, but weaning down , states he does not need nicotine patch # disposition-possible hospital stay for 48-72 hr advanced directive that discuss with patient he wishes to be full code Time Spent Managing Pts Care (In Minutes): 70
[2020-04-29] MEDS ORDERED: ONDANSETRON 4 MG/2 ML VIAL IV PRN (01:40)
[2020-04-29] MEDS ORDERED: MORPHINE 2 MG/ML SYR IV PRN (01:40)
[2020-04-29] MEDS ORDERED: HYDRALAZINE HCL 20 MG/ML VIAL IV PRN (01:42)
[2020-04-29] MEDS ORDERED: D50W 25 GM/50 ML SYRINGE IV PRN (01:42)
[2020-04-29] MEDS ORDERED: GLUCAGON 1 MG/VIAL IM PRN (01:42)
[2020-04-29] MEDS ORDERED: INSULIN -REGULAR HUMAN 100 UNIT in NA CHLORIDE 0.9% 100 ML IV SCH (01:45)
[2020-04-29] MEDS ORDERED: NA CHLORIDE 0.9% 1,000 ML IV SCH ×2 (02:00→10:00)
[2020-04-29 03:04] LABS: BUN Blood Urea Nitrogen 19 mg/dL (7-18); Glucose Level 227 mg/dL (74-106); Potassium 4.4 mmol/L (3.5-5.1); Sodium Level 136 mmol/L (136-145)
[2020-04-29] MEDS ORDERED: D5 0.9 NS 1,000 ML IV ONE (03:06)
[2020-04-29 03:10] LABS: Bicarbonate 11 mmol/L (21-32)
[2020-04-29 03:17] VITALS: BMI 21.7
[2020-04-29] MEDS ORDERED: D5 0.9 NS 1,000 ML IV SCH ×3 (04:00→09:39)
--- NOTE | 2020-04-29 08:01 | RAD REPORT ---
EXAM DESCRIPTION: Lucia Single View04/28/2020 10:26 pm CLINICAL HISTORY: Shortness of breath COMPARISON: none FINDINGS: The lungs are hyperaerated. The lungs appear clear of acute infiltrate. The heart is normal size
[2020-04-29] MEDS: ASPIRIN EC 81 MG TAB PO SCH (08:36)
[2020-04-29] MEDS: HEPARIN 5000 UNIT/ML 1 ML VIAL SQ SCH ×2 (08:36→17:00)
[2020-04-29] MEDS ORDERED: HEPARIN 5000 UNIT/ML 1 ML VIAL ONE (08:45)
[2020-04-29] MEDS ORDERED: PNEUMOCOCCAL VACCINE 0.5 ML IMVAC ONE ×2 (09:00→09:38)
[2020-04-29] MEDS ORDERED: NA CHLORIDE 0.9% 1,000 ML ONE (09:38)
[2020-04-29 09:57] LABS: BUN Blood Urea Nitrogen 14 mg/dL (7-18); Bicarbonate 18 mmol/L (21-32); Glucose Level 249 mg/dL (74-106); Potassium 4.3 mmol/L (3.5-5.1); Sodium Level 134 mmol/L (136-145)
[2020-04-29] MEDS ORDERED: NACHLORIDE 0.45% 1,000 ML IV SCH (11:00)
[2020-04-29] MEDS ORDERED: D5 0.45 NS 1,000 ML IV SCH (11:00)
[2020-04-29] MEDS ORDERED: INSULIN -REGULAR HUMAN 50 UNIT/0.5 ML ML SQ SCH ×2 (11:30→13:42)
[2020-04-29] MEDS ORDERED: INSULIN -REGULAR HUMAN 50 UNIT/0.5 ML ML ONE ×3 (11:36→15:56)
[2020-04-29] MEDS ORDERED: INSULIN GLARGINE 100 UNITS/ML SQ ONE (11:37)
[2020-04-29] MEDS ORDERED: INSULIN GLARGINE 100 UNITS/ML SQ SCH ×3 (12:00→21:00)
--- NOTE | 2020-04-29 12:28 | RAD REPORT ---
EXAM DESCRIPTION: CT - Abdomen Pelvis W Contrast - 04/29/2020 3:46 am CLINICAL HISTORY: 59 years Male Abd pain;Constipation COMPARISON: None TECHNIQUE: Images were obtained in axial, sagittal, and coronal planes. Intravenous contrast was adm inistered. Arterial and venous phase imaging was performed. This exam was performed according to our departmental dose-optimization program which includes use of Automated Exposure Control, adjustment of the mA and/or kV according to patient size and/or use o f iterative reconstruction technique. FINDINGS: No abnormality involving the liver, spleen, pancreas, gallbladder or right adrenal gland. Fatty replacement versus cyst in the region of anteromedial right lobe of liver. Accessory splenic ti ssue. Lobular appearance of left adrenal gland with no focal mass seen. No obstructing renal or ureteral calculi bilaterally. No hydronephrosis bilaterally. Distended bladde r. Calcifications involving the prostate gland. No renal parenchymal abnormalities bilaterally. Appendix within normal limits. No perforation. Mucosal thickening proximal jejunum with mildly dilate d fluid-filled jejunal loops. Marked constipation. No abnormality abdominal aorta or portal vein. No adenopathy or abnormal fluid collections noted. No acute osseous abnormality. No abnormality lower lungs bilaterally. IMPRESSION: Suspected enteritis and marked constipation. No definite bowel obstruction however follo w-up imaging is suggested if there is clinical suspicion for developing partial small bowel obstructi on. Nodular appearing left adrenal gland with no focal mass identified. Electronically signed by: Leslie Hopkins MD 04/29/2020 12:00 AM OXYGEN THERAPY TECHNICIAN Due to temporary technical issues with the PACS/Fluency reporting system, reports are being signed by the in house radiologist without review as a courtesy to ensure prompt reporting. The interpreting r adiologist is fully responsible for the content of the report.
--- NOTE | 2020-04-29 13:29 | P.PN ---
Subjective Date of Service: 04/29/20 Chief Complaint: nausea and vomiting , abdominal pain Subjective: Improving (Patient without nausea and vomiting.) Physical Examination - Vital Signs Temperature: 98.9 F Blood Pressure: 120/72 Pulse: 86 Respirations: 20 Pulse Ox (%): 99 - Physical Exam General: Alert, In no apparent distress, Oriented x3, Cooperative HEENT: Atraumatic Neck: Supple Respiratory: Clear to auscultation bilaterally, Normal air movement Cardiovascular: Normal pulses, Regular rate/rhythm Gastrointestinal: No ascites Integumentary: No erythema, No warmth, No cyanosis Neurological: Normal speech, Normal strength at 5/5 x4 extr, Normal tone, Normal affect - Studies Laboratory Data (last 24 hrs) 04/29/20 01:44: Sodium Cancelled, Potassium Cancelled, BUN Cancelled, Creatinine Cancelled, Glucose Cancelled, Phosphorus Cancelled 04/28/20 22:12: WBC 11.4 H, Hgb 16.5, Hct 52.1 H, Plt Count 309 04/28/20 22:12: Sodium 125 L, Potassium 5.7 H*, BUN 23 H, Creatinine 1.30, Glucose 559 H*, Total Bilirubin 0.6, AST 10 L, ALT 27, Alkaline Phosphatase 122 H, Lipase 85 Medications List Reviewed: Yes Assessment & Plan Discharge Plan: Home Plan to discharge in: 24 Hours Physician Review Additional Text: Impression: Nausea and vomiting secondary to Diabetic ketoacidosis with new diabetes mellitus type 2 HIV Hypertension Hyperlipidemia Former tobacco use Plan: Nausea and vomiting secondary to Diabetic ketoacidosis with new diabetes mellitus type 2: Gap has closed. Patient better hydrated. Patient desires to eat. Will transition to Lantus. Discontinue IV fluids and insulin drip. Will continue monitor closely. Recheck lab later today. A1c 12.0. Will educate on diabetes. Will transfer the patient to the floor later today if blood sugar stable. Anticipate improvement over the next 24 hr with possible discharge at t hat time. HIV: Will need to continue and restart his medications. Hypertension: Obtain and restart home medication. Hyperlipidemia: Obtain and restart home medication. Former tobacco use: Patient currently Vapes. Education provided. Time Spent Managing Pts Care (In Minutes): 55
[2020-04-29] MEDS ORDERED: TRAMADOL HCL 50 MG TAB PO PRN (13:31)
[2020-04-29 13:32] LABS: BUN Blood Urea Nitrogen 13 mg/dL (7-18); Bicarbonate 19 mmol/L (21-32); Glucose Level 278 mg/dL (74-106); Potassium 4.5 mmol/L (3.5-5.1); Sodium Level 133 mmol/L (136-145)
[2020-04-29] MEDS: INSULIN -REGULAR HUMAN 50 UNIT/0.5 ML ML SQ SCH ×3 (15:44→20:24)
--- NOTE | 2020-04-29 17:59 | P.CNS ---
Chief Complaint: nausea and vomiting , abdominal pain History of Present Illness: Pt is a 59 y/o male presenting with complainst of nausea, vomiting, diarrhea. Pt reports resolution at this time. Kidney fucntion poor on arrival, improved on IVF. Renal has been consulted for continued management of COLTON. Allergies No Known Allergies Allergy (Unverified 04/29/20 02:57) Home Medications: Ascorbate Calcium/Bioflavonoid [Sandra-C 1,000 mg Tablet] 1 tab PO DAILY 04/29/20 Aspirin Chewable [Aspirin Chewable*] 1 tab PO DAILY 04/29/20 Bictegrav/Emtricit/Tenofov Ala [Biktarvy 50-200-25 mg Tablet] 1 tab PO DAILY 04/29/20 Enalapril [Vasotec*] 20 mg PO DAILY 04/29/20 Pravastatin Sodium 1 tab PO DAILY 04/29/20 Insulin Glargine,Hum.rec.anlog [Lantus Solostar] 20 unit SQ BID #1 packet 04/30/20 Insulin Lispro [Humalog*] See Protocol SQ TIDWM #1 ml 04/30/20 - Past Medical/Surgical History Diabetic: No -: HTN,HIV,HLD - Family History Father Medical History: Diabetes - Social History Alcohol use: No CD- Drugs: No Caffeine use: No Place of Residence: Home Review of Systems 10-point ROS is otherwise unremarkable Physical Examination Temp Pulse Resp BP Pulse Ox 97.6 F 94 H 20 113/57 L 96 04/29/20 17:45 04/29/20 17:45 04/29/20 17:45 04/29/20 17:45 04/29/20 17:45 General: Alert, In no apparent distress HEENT: Atraumatic, PERRLA, Mucous membr. moist/pink, EOMI, Sclerae nonicteric Neck: Supple, 2+ carotid pulse no bruit, No LAD, Without JVD or thyroid abnormality Respiratory: Clear to auscultation bilaterally, Normal air movement Cardiovascular: Regular rate/rhythm, Normal S1 S2 Gastrointestinal: Normal bowel sounds, No tenderness Musculoskeletal: No tenderness Neurological: Normal gait, Normal speech, Normal tone, Normal affect Lymphatics: No axilla or inguinal lymphadenopathy Laboratory Data (last 24 hrs) 04/29/20 01:44: Sodium Cancelled, Potassium Cancelled, BUN Cancelled, Creatinine Cancelled, Glucose Cancelled, Phosphorus Cancelled 04/28/20 22:12: WBC 11.4 H, Hgb 16.5, Hct 52.1 H, Plt Count 309 04/28/20 22:12: Sodium 125 L, Potassium 5.7 H*, BUN 23 H, Creatinine 1.30, Glucose 559 H*, Total Bilirubin 0.6, AST 10 L, ALT 27, Alkaline Phosphatase 122 H, Lipase 85 Physician Review Additional Text: Problems Acute kidney injury mostly prerenal DKA -->resolved Hypertension-->controlled Plan Kidney function stable. Monitor off ivf Oral hydration encouraged
[2020-04-29 19:23] LABS: Potassium 4.3 mmol/L (3.5-5.1)
[2020-04-29] MEDS: FAMOTIDINE 20 MG TAB PO SCH (20:23)
[2020-04-30] MEDS: HEPARIN 5000 UNIT/ML 1 ML VIAL SQ SCH ×2 (01:20→09:27)
[2020-04-30 04:18] LABS: Absolute Lymphocytes (CBC) 1.1 K/uL (0.7-4.9); Basophils % 0.7 % (0-1.3); Hematocrit 38.8 % (39.6-49.0); Lymphocytes % 18.1 % (15.3-44.8); MPV 9.1 fL (7.6-11.3); RBC Red Blood Cell Count 4.69 M/uL (4.33-5.43)
[2020-04-30 04:36] LABS: BUN Blood Urea Nitrogen 10 mg/dL (7-18); Bicarbonate 23 mmol/L (21-32); Glucose Level 310 mg/dL (74-106); Magnesium 2.5 mg/dL (1.8-2.4); Potassium 3.9 mmol/L (3.5-5.1); Sodium Level 135 mmol/L (136-145)
--- NOTE | 2020-04-30 08:06 | P.DS ---
Admission Date: 04/29/20 Discharge Date: 04/30/20 Primary Care Provider: Dr. Arrington([place], [place]); HIV specialist-[facility] Disposition: ROUTINE DISCHARGE Discharge Condition: GOOD Reason for Admission: nausea and vomiting , abdominal pain Consultations: Nephrology-Dr. Sutton Procedures: COVID: Negative CXR: COMPARISON: none FINDINGS: The lungs are hyperaerated. the lungs appear clear of acute infiltrate. The heart is normal size CT Scan: FINDINGS: No abnormality involving the liver, spleen, pancreas, gallbladder or right adrenal gland. Fatty replacement versus cyst in the region of anteromedial right lobe of liver. Accessory splenic tissue. Lobular appearance of left adrenal gland with no focal mass seen. No obstructing renal or ureteral calculi bilaterally. No hydronephrosis bilaterally. Distended bladder. Calcifications involving the prostate gland. No renal parenchymal abnormalities bilaterally. Appendix within normal limits. No perforation. Mucosal thickening proximal jejunum with mildly dilated fluid-filled jejunal loops. Marked constipation. No abnormality abdominal aorta or portal vein. No adenopathy or abnormal fluid collections noted. No acute osseous abnormality. No abnormality lower lungs bilaterally. IMPRESSION: Suspected enteritis and marked constipation. No definite bowel obstruction Nodular appearing left adrenal gland with no focal mass identified. Medical problem list: Nausea and vomiting secondary to Diabetic ketoacidosis with new diabetes mellitus type 2 Acute renal insufficiency likely dehydration HIV Hypertension Hyperlipidemia Chronic constipation Former tobacco use Brief History of Present Illness: 59-year-old male with history of hypertension, hyperlipidemia, chronic constipation and HIV on anti retroviral medication. Patient presented with incr eased nausea, vomiting and abdominal pain. Patient found to have DKA. Initial CT scan showed no acute abnormality. Patient was admitted to the ICU and started on DKA protocol. Hospital Course: Patient presented with nausea, vomiting and abdominal pain. Patient found to have DKA with new diabetes mellitus. Patient was admitted to ICU and placed on DKA protocol. His condition improved. Patient also had acute renal insufficiency likely from dehydration. This improved with IV fluid hydration. DKA resolved. Patient was transitioned to Lantus. Blood sugar now stable. Hemoglobin A1c 12.0. Suspect new diabetes mellitus type 2. At discharge, patient will continue with Lantus 20 units subcu twice daily. Patient will also be given NovoLog sliding scale. Recommend to monitor blood sugars at least twice daily. Recommend to maintain blood sugar less than 140 fasting and less than 200 after meals. If the blood sugar remains elevated greater than 200. Patient may increase Lantus by a 1-2 units for better control. Recommend follow up with PCP in 1 week to further address and monitor his care. Patient may benefit with endocrinology evaluation as an outpatient to further address and monitor. Diabetic education provided. Patient will continue with a 2000 ADA diet at discharge. Education on DKA also provided. Patient with HIV. Patient on anti retroviral medication. At discharge patient will continue with his current medication. Patient is being followed at [facility]. Patient with hypertension. At discharge patient will continue with enalapril 20 mg daily and aspirin 81 mg daily. Recommend to maintain blood pressure less than 130/80. Further adjustment can be done by his PCP. Patient with hyperlipidemia. At discharge patient will continue with pravastatin 40 mg daily. Patient with chronic constipation. Patient may continue with stool softener at home. Patient may benefit with prune juice. Recommend follow up with GI as an outpatient to further address. Patient may require colonoscopy in the future to further evaluate. Vital Signs/Physical Exam: Temp Pulse Resp BP Pulse Ox 97.8 F 84 18 144/76 H 99 04/30/20 04:00 04/30/20 04:00 04/30/20 04:00 04/30/20 04:00 04/30/20 04:00 General: Alert, In no apparent distress, Oriented x3, Cooperative HEENT: Atraumatic Neck: Supple Respiratory: Clear to auscultation bilaterally, Normal air movement Cardiovascular: Normal pulses, Regular rate/rhythm Gastrointestinal: Normal bowel sounds, No tenderness, No masses, No rebound, No guarding Musculoskeletal: No erythema, No tenderness, No warmth Neurological: Normal speech, Normal strength at 5/5 x4 extr, Normal tone, Normal affect Laboratory Data at Discharge: WBC 6.3 K/uL (4.3-10.9) D 04/30/20 03:53 Hgb 12.6 g/dL (13.6-17.9) L D 04/30/20 03:53 Hct 38.8 % (39.6-49.0) L D 04/30/20 03:53 Plt Count 186 K/uL (152-406) D 04/30/20 03:53 Sodium 135 mmol/L (136-145) L 04/30/20 03:53 Potassium 3.9 mmol/L (3.5-5.1) 04/30/20 03:53 BUN 10 mg/dL (7-18) 04/30/20 03:53 Creatinine 0.61 mg/dL (0.55-1.3) 04/30/20 03:53 Glucose 310 mg/dL (74-106) H 04/30/20 03:53 Phosphorus 2.0 mg/dL (2.5-4.9) L 04/29/20 02:15 Magnesium 2.5 mg/dL (1.8-2.4) H 04/30/20 03:53 Total Bilirubin 0.6 mg/dL (0.2-1.0) 04/28/20 22:12 AST 10 U/L (15-37) L 04/28/20 22:12 ALT 27 U/L (12-78) 04/28/20 22:12 Alkaline Phosphatase 122 U/L (45-117) H 04/28/20 22:12 Lipase 85 U/L (73-393) 04/28/20 22:12 Home Medications: Ascorbate Calcium/Bioflavonoid [Sandra-C 1,000 mg Tablet] 1 tab PO DAILY 04/29/20 Aspirin Chewable [Aspirin Chewable*] 1 tab PO DAILY 04/29/20 Bictegrav/Emtricit/Tenofov Ala [Biktarvy 50-200-25 mg Tablet] 1 tab PO DAILY 04/29/20 Enalapril [Vasotec*] 20 mg PO DAILY 04/29/20 Pravastatin Sodium 1 tab PO DAILY 04/29/20 Insulin Aspart [Novolog Flexpen] See Protocol SQ ACHS #1 packet 04/30/20 Insulin Glargine,Hum.rec.anlog [Lantus Solostar] 20 unit SQ BID #1 packet 04/30/20 New Medications: Insulin Glargine,Hum.rec.anlog [Lantus Solostar] 20 unit SQ BID #1 packet Insulin Aspart [Novolog Flexpen] See Protocol SQ ACHS #1 packet Patient Discharge Instructions: 1. Recommend follow up with PCP in 1 week to follow up this hospitalization. 2. Patient presented with nausea, vomiting and abdominal pain. Patient found to have DKA with new diabetes mellitus. Patient was admitted to ICU and placed on DKA protocol. His condition improved. Patient also had acute renal insufficiency likely from dehydration. This improved with IV fluid hydration. DKA resolved. Patient was transitioned to Lantus. Blood sugar now stable. Hemoglobin A1c 12.0. Suspect new diabetes mellitus type 2. At discharge, patient will continue with Lantus 20 units subcu twice daily. Patient will also be given NovoLog sliding scale. Recommend to monitor blood sugars at least twice daily. Recommend to maintain blood sugar less than 140 fasting and less than 200 after meals. If the blood sugar remains elevated greater than 200. Patient may increase Lantus by a 1-2 units for better control. Recommend follow up with PCP in 1 week to further address and monitor his care. Patient may benefit with endocrinology evaluation as an outpatient to further address and monitor. Diabetic education provided. Patient will continue with a 2000 ADA diet at discharge. Education on DKA also provided. 3. Patient with HIV. Patient on anti retroviral medication. At discharge patient will continue with his current medication. Patient is being followed at [facility]. 4. Patient with hypertension. At discharge patient will continue with enalapril 20 mg daily and aspirin 81 mg daily. Recommend to maintain blood pressure less than 130/80. Further adjustment can be done by his PCP. 5. Patient with hyperlipidemia. At discharge patient will continue with pravastatin 40 mg daily. 6. Patient with chronic constipation. Patient may c ontinue with stool softener at home. Patient may benefit with prune juice. Recommend follow up with GI as an outpatient to further address. Patient may require colonoscopy in the future to further evaluate. Diet: ADA Activity: Ad rohan Followup: SARAH SHARIF [Primary Care Provider] - Time spent managing pt's care (in minutes): 55
[2020-04-30] MEDS ORDERED: FOLIC ACID 1 MG TABLET PO SCH (09:00)
[2020-04-30] MEDS ORDERED: ASCORBIC ACID 500 MG TABLET PO SCH (09:00)
[2020-04-30] MEDS ORDERED: ATORVASTATIN 10 MG TAB PO SCH (09:00)
[2020-04-30] MEDS ORDERED: Bictegrav/Emtricit/Tenofov Ala [Biktarvy 50-200-25 Mg Tablet] PO SCH (09:00)
[2020-04-30] MEDS ORDERED: ENALAPRIL 10 MG TAB PO SCH (09:00)
[2020-04-30] MEDS ORDERED: INSULIN GLARGINE 100 UNITS/ML SQ SCH (09:00)
[2020-04-30] MEDS: ASPIRIN EC 81 MG TAB PO SCH (09:00)
[2020-04-30] MEDS: FAMOTIDINE 20 MG TAB PO SCH (09:27)
[2020-04-30] MEDS: INSULIN -REGULAR HUMAN 50 UNIT/0.5 ML ML SQ SCH ×2 (09:29→12:46)
[2020-04-30 11:11] VITALS: O2SAT 100
[2020-04-30 14:35] VITALS: BP 116/73; TEMP 98.2
== END 2020-04-30 13:58 | disposition home or self-care (01) ==
LOC: ER 21:06 → ERHOLD 04-29 01:49 → INTOOBSV 04-29 01:49 → 2ND 04-29 17:14
PROVIDERS: ADMIT Internal Medicine; ATTEND Family Medicine
DX: E11.10 Type 2 diabetes mellitus with ketoacidosis without coma (principal); N17.9 Acute kidney failure, unspecified; I10 Essential (primary) hypertension; E78.5 Hyperlipidemia, unspecified; K59.09 Other constipation; F17.290 Nicotine dependence, other tobacco product, uncomplicated; Z20.828 Contact with and (suspected) exposure to other viral communicable diseases; R94.31 Abnormal electrocardiogram [ECG] [EKG]
CPT/HCPCS: 93005; 85025 ×2; 80048 ×6; 36415 ×2; 82010; 83735; 84100; 82565; 82947 ×16; 80076; 84443; 81003; 83036; 84484; 84439; 83690; 74177; 71045; 90471; 90732; 82805; 96375; 96374; 99285; U0003; Q9967; J1644 ×4; J1815 ×3; J7042; J7030 ×3; J2405